=== PATIENT | male | born 1985 ===

== ENCOUNTER 2017-03-07 21:31 | Observation (INO) | payer MEDICAID, OTHER ==
[2017-03-07] MEDS ORDERED: Morphine 4 MG/ML VIAL IVP ONE (22:02)
[2017-03-07] MEDS ORDERED: Morphine 4 MG/ML VIAL ONE (22:13)
[2017-03-07 22:28] LABS: BASO % 0.4 % (0.0-2.0); EOS # 0.1 K/uL (0.0-0.7); EOS % 1.4 % (0.0-4.0); HEMATOCRIT 37.2 % (35.0-51.0); LYMPH # 1.3 K/uL (1.0-4.3); LYMPH % 17.9 % (20.0-40.0); MEAN CELL VOLUME 80.7 fl (80.0-94.0); MEAN CORPUSCULAR HEMOGLOBIN 25.8 pg (27.0-31.0); MONO # 0.8 K/uL (0.0-0.8); MONO % 10.5 % (0.0-10.0); NEUT # 5.1 K/uL (1.8-7.0); NEUT % 69.8 % (50.0-75.0); NRBC % 0.1 % (0.0-0.0); RED CELL DISTRIBUTION WIDTH 15.1 % (11.5-14.5); WHITE BLOOD COUNT 7.3 K/uL (4.8-10.8)
[2017-03-07 22:29] LABS: ALB/GLOB RATIO 1.2 (1.0-2.1); ALCOHOL SERUM < 10 mg/dl (0-10); ALKALINE PHOSPHATASE 101 U/L (38-126); ALT/SGPT 113 U/L (21-72); AST/SGOT 79 U/L (17-59); BILIRUBIN,TOTAL 0.4 mg/dl (0.2-1.3); BLOOD UREA NITROGEN 13 mg/dl (9-20); CALCIUM 8.2 mg/dL (8.4-10.2); CARBON DIOXIDE 25 mmol/L (22-30); CHLORIDE 102 mmol/L (98-107); GFR AFRICAN-AMERICAN > 60; GLUCOSE,RANDOM 105 mg/dL (75-110); POTASSIUM 3.7 MMOL/L (3.6-5.0); SODIUM 137 mmol/l (132-148); TOTAL PROTEIN 7.3 G/DL (6.3-8.2)
[2017-03-07 22:35] LABS: PARTIAL THROMBOPLASTIN TIME 29.1 Seconds (25.6-37.1)
--- NOTE | 2017-03-07 22:44 | ED PDOC ---
HPI: Chest Pain Time Seen by Provider: 03/07/17 21:48 Chief Complaint (Nursing): Chest Pain Chief Complaint (Provider): Chest pain History Per: Patient History/Exam Limitations: no limitations Onset/Duration Of Symptoms: Days (4) Additional Complaint(s): Patient is a 32 y/o male with no significant past medical history presenting to the emergency department for worsening chest pain that started four days ago with an associated mild cough that began today. Reports that the pain radiates to his back and is worse when inhaling or coughing. States that he feels that at times he cant catch a full breath. Also notes that he was seen at [facility] on 03/05/17, and had a workup there and was discharged. The pain has been considerably worse since then. Denies fever, nausea, vomiting, diarrhea, or other complaints. PCP: none provided. Past Medical History Reviewed: Historical Data, Nursing Documentation, Vital Signs Vital Signs: Last Vital Signs Temp 98.3 F 03/08/17 12:22 Pulse 79 03/08/17 12:22 Resp 18 03/08/17 12:22 BP 106/69 03/08/17 12:22 Pulse Ox 98 03/08/17 12:22 - Medical History PMH: No Chronic Diseases - Surgical History Surgical History: No Surg Hx - Family History Family History: States: Unknown Family Hx - Social History Current smoker - smoking cessation education provided: No Ex-Smoker (has not smoked in the last 12 months): No Alcohol: None Drugs: Denies - Immunization History Hx Tetanus Toxoid Vaccination: No Hx Influenza Vaccination: No Hx Pneumococcal Vaccination: No - Home Medications Home Medications: Ambulatory Orders Medication Instructions Recorded Aspirin [Ecotrin] 81 mg PO DAILY tabec 03/08/17 Cyanocobalamin/Folic Acid [Vitamin 1 each PO DAILY #30 tablet 03/08/17 W61-Gmges Acid Tablet] Ferrous Sulfate [Feosol] 325 mg PO DAILY #30 tab 03/08/17 - Allergies Allergies/Adverse Reactions: Allergies Allergy/AdvReac Type Severity Reaction Status Date / Time No Known Allergies Allergy Verified 07/19/15 13:27 Review of Systems ROS Statement: Except As Marked, All Systems Reviewed And Found Negative Constitutional: Negative for: Fever Cardiovascular: Positive for: Chest Pain Respiratory: Positive for: Cough (mild) Gastrointestinal: Negative for: Nausea, Vomiting, Diarrhea Musculoskeletal: Positive for: Back Pain Physical Exam - Reviewed Nursing Documentation Reviewed: Yes Vital Signs Reviewed: Yes - Physical Exam Appears: Positive for: Non-toxic, No Acute Distress, Uncomfortable Head Exam: Positive for: ATRAUMATIC, NORMAL INSPECTION, NORMOCEPHALIC Skin: Positive for: Normal Color, Warm, Dry Eye Exam: Positive for: Normal appearance Neck: Positive for: Normal Cardiovascular/Chest: Positive for: Tachycardia. Negative for: Murmur Respiratory: Positive for: Normal Breath Sounds. Negative for: Accessory Muscle Use, Respiratory Distress Gastrointestinal/Abdominal: Positive for: Normal Exam Extremity: Positive for: Normal ROM Neurologic/Psych: Positive for: Alert, Oriented (x3) - Laboratory Results Result Diagrams: 03/07/17 22:11 03/07/17 22:11 - ECG O2 Sat by Pulse Oximetry: 99 (RA) Pulse Ox Interpretation: Normal Medical Decision Making Medical Decision Making: Time: 21:48 Initial impression: Patient is a 32 y/o male with persistent chest pain. Initial plan: Angio Chest CT scan EKG Urine Drug Screening CBC Erythrocyte Sedimentation Rate Toradol 30 mg IV Morphine 4 mg IV Reevaluation Time: 2335 CT ANGIO CHEST IMPRESSION: 1. No pulmonary embolism. 2. Mild peripheral air trapping suggestive of mild small airways disease. 3. Fluid attenuation structure within the right-sided epicardial fat, favored to represent a pericardial cyst. Correlate with prior imaging if available. Otherwise, consider echocardiography for further evaluation. Time: 0106 labs reviewed and indicate an elevated sed rate; patient to be placed under chest pain observation. Case discussed with Dr. Florentino. Scribe Attestation: Documented by Dariana Hogan, acting as a scribe for Adebayo Leung MD. Provider Scribe Attestation: All medical record entries made by the Scribe were at my direction and personally dictated by me. I have reviewed the chart and agree that the record accurately reflects my personal performance of the history, physical exam, medical decision making, and the department course for this patient. I have also personally directed, reviewed, and agree with the discharge instructions and disposition. Disposition - Clinical Impression Clinical Impression: Chest pain - Patient ED Disposition Is Patient to be Admitted: Yes Discussed With DrFlip: Peng Florentino Counseled Patient/Family Regarding: Studies Performed, Diagnosis - Disposition Disposition Time: 01:07 Condition: FAIR - Pt Status Changed To: Hospital Disposition Of: Observation
[2017-03-07] MEDS ORDERED: Iodixanol 320 MG/ML 100 ML BOTTLE IV ONE (23:01)
[2017-03-07] MEDS ORDERED: Sodium Chloride 0.9% 50 ML IV ONE (23:01)
--- NOTE | 2017-03-08 01:34 | CP.PCM.HP ---
History of Present Illness - History of Present Illness History of Present Illness: PCP: None Chief Complaint Chest pain The patient was seen and examined in the ED HPI: 32 years old male with no past medical hx, comes with 4 days of pleuritic, Sharp, intermittent chest pain which increases with deep inspirtation and in any valsalva maneuver as straining to have a bowel movement. The pain radiates across the chest to the right neck and upper right back. He went to [facility] on the previous day for the same complaint. He was treated and discharged. No diaphoresis, fever, nausea, vomits, diarrhea, dysuria nor urinary frequently. PMH: No hereditary diseases PSH: Denies SH: No illegal drug use; Never smoked; Occasional alcohol; work as a straddle truck driver FH: Sister had some Problem with her heart cavity Allergies: NKDA Medication: none Present on Admission - Present on Admission Any Indicators Present on Admission: No History of DVT/PE: No History of Uncontrolled Diabetes: No Urinary Catheter: No Decubitus Ulcer Present: No Review of Systems - Constitutional Constitutional: absent: Anorexia, Fatigue, Fever, Headache - EENT Eyes: Requires Corrective Lenses. absent: Diplopia, Floaters, Photophobia, Sees Flashes Ears: absent: Decreased Hearing, Ear Discharge, Ear Pain, Tinnitus Nose/Mouth/Throat: absent: Epistaxis, Nasal Congestion, Sinus Pain, Sinus Pressure - Cardiovascular Cardiovascular: absent: Dyspnea, Edema Additional comments: Precordial chest pain radiating to the right neck - Respiratory Respiratory: absent: Cough, Dyspnea - Gastrointestinal Gastrointestinal: absent: Abdominal Pain, Constipation, Diarrhea, Nausea, Vomiting - Genitourinary Genitourinary: absent: Dysuria, Flank Pain, Hematuria, Urinary Frequency - Musculoskeletal Musculoskeletal: absent: Arthralgias, Joint Swelling, Muscle Weakness - Integumentary Integumentary: absent: Pruritus, Rash, Skin Ulcer, Sores, Striae, Swelling - Neurological Neurological: absent: Confusion, Dizziness, Focal Weakness, Loss of Vision, Weakness - Psychiatric Psychiatric: absent: Anxiety, Depression, Panic Attacks - Endocrine Endocrine: absent: Palpitations, Polydipsia, Polyphagia, Polyuria - Hematologic/Lymphatic Hematologic: absent: Easy Bleeding, Easy Bruising Past Patient History - Past Social History Smoking Status: Never Smoked Chewing Tobacco Use: No Cigar Use: No Alcohol: Occasional Drugs: Denies - CARDIAC Hx Cardiac Disorders: No - PULMONARY Hx Respiratory Disorders: No - NEUROLOGICAL Hx Neurological Disorder: No - HEENT Hx HEENT Problems: No - RENAL Hx Chronic Kidney Disease: No - ENDOCRINE/METABOLIC Hx Endocrine Disorders: No - HEMATOLOGICAL/ONCOLOGICAL Hx Blood Disorders: No - INTEGUMENTARY Hx Dermatological Problems: No - MUSCULOSKELETAL/RHEUMATOLOGICAL Hx Musculoskeletal Disorders: No - GASTROINTESTINAL Hx Gastrointestinal Disorders: No - GENITOURINARY/GYNECOLOGICAL Hx Genitourinary Disorders: No - PSYCHIATRIC Hx Psychophysiologic Disorder: No Hx Substance Use: No - SURGICAL HISTORY Hx Surgeries: No - ANESTHESIA Hx Anesthesia: No Meds Allergies/Adverse Reactions: Allergies Allergy/AdvReac Type Severity Reaction Status Date / Time No Known Allergies Allergy Verified 07/19/15 13:27 Physical Exam - Constitutional Appears: No Acute Distress - Head Exam Head Exam: ATRAUMATIC, NORMAL INSPECTION, NORMOCEPHALIC - Eye Exam Eye Exam: EOMI, Normal appearance Pupil Exam: NORMAL ACCOMODATION, PERRL - ENT Exam ENT Exam: Mucous Membranes Moist, Normal Exam, Normal External Ear Exam, Normal Oropharynx - Neck Exam Neck exam: Positive for: Full Rom, Normal Inspection. Negative for: Lymphadenopathy, Tenderness - Respiratory Exam Respiratory Exam: Clear to Auscultation Bilateral. absent: Rales, Rhonchi, Wheezes - Cardiovascular Exam Cardiovascular Exam: REGULAR RHYTHM, RRR, +S1, +S2. absent: JVD, Rubs - GI/Abdominal Exam GI & Abdominal Exam: Normal Bowel Sounds, Soft. absent: Mass, Organomegaly - Rectal Exam Rectal Exam: Deferred - Extremities Exam Extremities exam: Positive for: full ROM, normal inspection. Negative for: joint swelling, pedal edema - Back Exam Back exam: NORMAL INSPECTION. absent: CVA tenderness (L), CVA tenderness (R) - Neurological Exam Neurological exam: Alert, CN II-XII Intact, Oriented x3, Reflexes Normal - Psychiatric Exam Psychiatric exam: Normal Affect, Normal Mood - Skin Skin Exam: Dry, Intact, Normal Color, Warm Results - Vital Signs Recent Vital Signs: Last Vital Signs Temp 99.1 F 03/08/17 01:26 Pulse 93 H 03/08/17 01:26 Resp 16 03/08/17 01:26 BP 100/69 03/08/17 01:26 Pulse Ox 99 03/08/17 01:26 - Labs Result Diagrams: 03/07/17 22:11 03/07/17 22:11 Labs: Laboratory Results - last 24 hr 03/07/17 03/07/17 03/07/17 22:11 22:11 22:11 WBC 7.3 RBC 4.60 Hgb 11.9 L Hct 37.2 MCV 80.7 MCH 25.8 L MCHC 32.0 L RDW 15.1 H Plt Count 183 MPV 10.0 Neut % (Auto) 69.8 Lymph % (Auto) 17.9 L Winn % (Auto) 10.5 H Eos % (Auto) 1.4 Baso % (Auto) 0.4 Neut # 5.1 Lymph # 1.3 Winn # 0.8 Eos # 0.1 Baso # 0.0 ESR 47 H PT 11.3 INR 1.0 APTT 29.1 Sodium 137 Potassium 3.7 Chloride 102 Carbon Dioxide 25 Anion Gap 14 BUN 13 Creatinine 1.1 Est GFR ( Amer) > 60 Est GFR (Non-Af Amer) > 60 Random Glucose 105 Calcium 8.2 L Total Bilirubin 0.4 AST 79 H ALT 113 H Alkaline Phosphatase 101 Troponin I < 0.0120 Total Protein 7.3 Albumin 4.1 Globulin 3.2 Albumin/Globulin Ratio 1.2 Urine Opiates Screen Urine Methadone Screen Ur Barbiturates Screen Ur Phencyclidine Scrn Ur Amphetamines Screen U Benzodiazepines Scrn U Oth Cocaine Metabols U Cannabinoids Screen Alcohol, Quantitative < 10 Influenza Typ A,B (EIA) 03/07/17 03/07/17 22:11 23:02 WBC RBC Hgb Hct MCV MCH MCHC RDW Plt Count MPV Neut % (Auto) Lymph % (Auto) Winn % (Auto) Eos % (Auto) Baso % (Auto) Neut # Lymph # Winn # Eos # Baso # ESR PT INR APTT Sodium Potassium Chloride Carbon Dioxide Anion Gap BUN Creatinine Est GFR ( Amer) Est GFR (Non-Af Amer) Random Glucose Calcium Total Bilirubin AST ALT Alkaline Phosphatase Troponin I Total Protein Albumin Globulin Albumin/Globulin Ratio Urine Opiates Screen Positive H Urine Methadone Screen Negative Ur Barbiturates Screen Negative Ur Phencyclidine Scrn Negative Ur Amphetamines Screen Negative U Benzodiazepines Scrn Negative U Oth Cocaine Metabols Negative U Cannabinoids Screen Negative Alcohol, Quantitative Influenza Typ A,B (EIA) Negative for flu a/b - Imaging and Cardiology CT scan - chest Status: Image reviewed by me, Report reviewed by me Additional comment: EXAM: CT Angiography Chest With Intravenous Contrast FINDINGS: Pulmonary arteries: No filling defects within the central, segmental, or visualized subsegmental pulmonary arteries. Aorta: No acute findings. No thoracic aortic aneurysm. Lungs: The central airways are patent. Trace subpleural air-trapping within the lower lobes. Superimposed subpleural reticular opacities within the dependent aspect of the lower lobes may represent subsegmental atelectasis or scarring. No focal consolidation. Pleural space: No pneumothorax. No pleural effusion. Heart: Normal. No cardiomegaly. No significant pericardial effusion. No evidence of RV dysfunction. Bones/joints: The spine, sternum, ribs, and pectoral girdles are within normal limits for age. No acute osseous abnormality. No dislocation. Soft tissues: Fluid attenuation structure (6 Hounsfield units) within the right- sided epicardial fat measures approximately 4.4 cm x 2.4 cm x 6.4 cm (coronal series 601 image 30 and axial series 4 image 130). Lymph nodes: Normal. No enlarged lymph nodes. Upper abdomen: The visualized abdominal structures are normal. IMPRESSION: 1. No pulmonary embolism. 2. Mild peripheral air trapping suggestive of mild small airways disease. 3. Fluid attenuation structure within the right-sided epicardial fat, favored to represent a pericardial cyst. Correlate with prior imaging if available. Otherwise, consider echocardiography for further evaluation. Assessment & Plan - Assessment and Plan (Free Text) Assessment: #. Chest pain #. Anemia Plan: 32 years old male with no past medical hx, comes with 4 days of pleuritic, Sharp , intermittent chest pain which increases with deep inspirtation and in any valsalva maneuver as straining to have a bowel movement. The pain radiates across the chest to the right neck and upper right back. He went to [facility] on the previous day for the same complaint. He was treated and discharged. #. 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 Anemia - Iron panel - Vitamin B12 and Folate levels - Follow CBC #. DVT prophylaxis with Lovenox #. Code Status: Full - Date & Time Date: 03/08/17 Time: 01:34
[2017-03-08 03:48] VITALS: RESP 18
[2017-03-08 05:56] LABS: IRON 23 ug/dL (49-181)
[2017-03-08 06:01] LABS: CHOLESTEROL 142 mg/dL (0-199)
[2017-03-08] MEDS ORDERED: Influenza Vaccine 18yr & older 0.5 ML/45 MCG SYR IM ONE (06:30)
--- NOTE | 2017-03-08 08:24 | CARD ---
APPROVED REPORT EKG Measurement Heart [id number] <Conclusion> Normal sinus rhythm
--- NOTE | 2017-03-08 08:37 | CARD ---
APPROVED REPORT EKG Measurement Heart [id number] RI 156P35 [id number] <Conclusion> Normal sinus rhythm Rightward axis
[2017-03-08] MEDS ORDERED: Enoxaparin 40 mg Syringe SC SCH (09:00)
[2017-03-08 09:06] LABS: T4 5.84 ug/dl (5.5-11.0)
--- NOTE | 2017-03-08 09:13 | CT ---
PROCEDURE: CT Chest with contrast (Pulmonary Angiogram) HISTORY: chest pain r/o PE COMPARISON: None available. TECHNIQUE: Axial computed tomography images were obtained of the chest in the pulmonary arterial phase of enhancement. Coronal and sagittal reformatted images were created and reviewed. Intravenous contrast dose: 90 mL Visipaque 320 Radiation dose: Total exam DLP = 380 mGy-cm. This CT exam was performed using one or more of the following dose reduction techniques: Automated exposure control, adjustment of the mA and/or kV according to patient size, and/or use of iterative reconstruction technique. FINDINGS: PULMONARY ARTERIES: Unremarkable. No pulmonary embolism. AORTA: No acute findings. No thoracic aortic aneurysm. LUNGS: Inferior right upper lobe 8 millimeter sub fissural nodule (series 5, image 53). No focal consolidation. PLEURAL SPACES: Unremarkable. No effusion or pneumothorax. HEART: Enlarged. No significant pericardial effusion. Prominent, lobulated nonspecific fluid attenuation structure in the right epicardial fat pad spanning approximately 6.3 x 2.8 centimeter (series 3, image 65). LYMPH NODES: No lymphadenopathy. BONES, CHEST WALL: Unremarkable. No fracture or destructive lesion OTHER FINDINGS: Prominent, heterogeneous thyroid. IMPRESSION: Unremarkable CT pulmonary angiogram. No pulmonary embolus. Right upper lobe 8 millimeter sub fissural nodule. CT follow-up in 3-6 months is recommended to assess for stability/interval change. Nonspecific, lobulated fluid attenuation structure in the right epicardial fat pad measuring up to 6.3 centimeter. Findings may represent pericardial cyst versus necrotic lymph nodes. Contrast-enhanced MRI of the chest can be obtained for further evaluation as clinically warranted. Findings conveyed to VERONICA Noriega by Dr. Arrington at 9:10 am on 03/08/2017.
[2017-03-08 09:19] LABS: THYROID STIMULATING HORMONE 7.13 mIU/ML (0.46-4.68)
--- NOTE | 2017-03-08 10:15 | CP.PCM.CON ---
History of Present Illness - History of Present Illness History of Present Illness: 32 y/o male admitted with chest pain Pt first developed pleuritic type chest pain radiating to Right Neck on Monday 03/05; at which time he was seen in [facility] ER and discharged pain returned yesterday 03/07 claims it is sharp ; located at upper mid chest area worse with deep inspiration right neck pain seems to be more of a muscular type pain worse with neck movement / and palpation EKG: normal Troponin: neg Past Patient History - Past Medical History & Family History Past Medical History?: No - Past Social History Smoking Status: Never Smoked Chewing Tobacco Use: No Cigar Use: No Alcohol: Occasional Drugs: Denies - CARDIAC Hx Cardiac Disorders: No - PULMONARY Hx Respiratory Disorders: No - NEUROLOGICAL Hx Neurological Disorder: No - HEENT Hx HEENT Problems: No - RENAL Hx Chronic Kidney Disease: No - ENDOCRINE/METABOLIC Hx Endocrine Disorders: No - HEMATOLOGICAL/ONCOLOGICAL Hx Blood Disorders: No - INTEGUMENTARY Hx Dermatological Problems: No - MUSCULOSKELETAL/RHEUMATOLOGICAL Hx Musculoskeletal Disorders: No - GASTROINTESTINAL Hx Gastrointestinal Disorders: No - GENITOURINARY/GYNECOLOGICAL Hx Genitourinary Disorders: No - PSYCHIATRIC Hx Psychophysiologic Disorder: No Hx Substance Use: No - SURGICAL HISTORY Hx Surgeries: No - ANESTHESIA Hx Anesthesia: No Meds Allergies/Adverse Reactions: Allergies Allergy/AdvReac Type Severity Reaction Status Date / Time No Known Allergies Allergy Verified 07/19/15 13:27 - Medications Medications: Current Medications Aspirin (Ecotrin) 81 mg PO DAILY [facility] Last Admin: 03/08/17 08:24 Dose: 81 mg Cyanocobalamin (Vitamin B12 1000 Mcg/Ml Inj) 1,000 mcg IM DAILY [facility] Enoxaparin Sodium (Lovenox) 40 mg SC DAILY [facility] PRN Reason: Protocol Last Admin: 03/08/17 08:24 Dose: 40 mg Ferrous Sulfate (Feosol) 325 mg PO BID [facility] Ketorolac Tromethamine (Toradol) 30 mg IVP Q6 PRN PRN Reason: Pain, severe (8-10) Last Admin: 03/08/17 04:12 Dose: 30 mg Ketorolac Tromethamine (Toradol) 15 mg IVP Q6 PRN PRN Reason: Pain, moderate (4-7) Physical Exam - Neck Exam Neck exam: Positive for: Tenderness - Respiratory Exam Respiratory Exam: NORMAL BREATHING PATTERN - Cardiovascular Exam Cardiovascular Exam: REGULAR RHYTHM Additional comments: no friction rub Results - Vital Signs Recent Vital Signs: Last Vital Signs Temp 98.2 F 03/08/17 08:01 Pulse 72 03/08/17 08:01 Resp 18 03/08/17 08:01 BP 109/67 03/08/17 08:01 Pulse Ox 96 03/08/17 08:01 - Labs Result Diagrams: 03/07/17 22:11 03/07/17 22:11 Labs: Laboratory Results - last 24 hr 03/07/17 03/07/17 03/07/17 22:11 22:11 22:11 WBC 7.3 RBC 4.60 Hgb 11.9 L Hct 37.2 MCV 80.7 MCH 25.8 L MCHC 32.0 L RDW 15.1 H Plt Count 183 MPV 10.0 Neut % (Auto) 69.8 Lymph % (Auto) 17.9 L Beadle % (Auto) 10.5 H Eos % (Auto) 1.4 Baso % (Auto) 0.4 Neut # 5.1 Lymph # 1.3 Beadle # 0.8 Eos # 0.1 Baso # 0.0 ESR 47 H PT 11.3 INR 1.0 APTT 29.1 Sodium 137 Potassium 3.7 Chloride 102 Carbon Dioxide 25 Anion Gap 14 BUN 13 Creatinine 1.1 Est GFR ( Amer) > 60 Est GFR (Non-Af Amer) > 60 Random Glucose 105 Calcium 8.2 L Iron TIBC % Saturation Total Bilirubin 0.4 AST 79 H ALT 113 H Alkaline Phosphatase 101 Troponin I < 0.0120 Total Protein 7.3 Albumin 4.1 Globulin 3.2 Albumin/Globulin Ratio 1.2 Triglycerides Cholesterol LDL Cholesterol Direct HDL Cholesterol Vitamin B12 Thyroxine (T4) TSH 3rd Generation Urine Opiates Screen Urine Methadone Screen Ur Barbiturates Screen Ur Phencyclidine Scrn Ur Amphetamines Screen U Benzodiazepines Scrn U Oth Cocaine Metabols U Cannabinoids Screen Alcohol, Quantitative < 10 Influenza Typ A,B (EIA) 03/07/17 03/07/17 03/08/17 22:11 23:02 05:00 WBC RBC Hgb Hct MCV MCH MCHC RDW Plt Count MPV Neut % (Auto) Lymph % (Auto) Beadle % (Auto) Eos % (Auto) Baso % (Auto) Neut # Lymph # Beadle # Eos # Baso # ESR PT INR APTT Sodium Potassium Chloride Carbon Dioxide Anion Gap BUN Creatinine Est GFR ( Amer) Est GFR (Non-Af Amer) Random Glucose Calcium Iron TIBC % Saturation Total Bilirubin AST ALT Alkaline Phosphatase Troponin I < 0.0120 Total Protein Albumin Globulin Albumin/Globulin Ratio Triglycerides 61 Cholesterol 142 LDL Cholesterol Direct 73 HDL Cholesterol 47 Vitamin B12 211 L Thyroxine (T4) TSH 3rd Generation Urine Opiates Screen Positive H Urine Methadone Screen Negative Ur Barbiturates Screen Negative Ur Phencyclidine Scrn Negative Ur Amphetamines Screen Negative U Benzodiazepines Scrn Negative U Oth Cocaine Metabols Negative U Cannabinoids Screen Negative Alcohol, Quantitative Influenza Typ A,B (EIA) Negative for flu a/b 03/08/17 03/08/17 05:00 08:40 WBC RBC Hgb Hct MCV MCH MCHC RDW Plt Count MPV Neut % (Auto) Lymph % (Auto) Beadle % (Auto) Eos % (Auto) Baso % (Auto) Neut # Lymph # Beadle # Eos # Baso # ESR PT INR APTT Sodium Potassium Chloride Carbon Dioxide Anion Gap BUN Creatinine Est GFR ( Amer) Est GFR (Non-Af Amer) Random Glucose Calcium Iron 23 L TIBC 239 L % Saturation 10 L Total Bilirubin AST ALT Alkaline Phosphatase Troponin I Total Protein Albumin Globulin Albumin/Globulin Ratio Triglycerides Cholesterol LDL Cholesterol Direct HDL Cholesterol Vitamin B12 Thyroxine (T4) 5.84 TSH 3rd Generation 7.13 H Urine Opiates Screen Urine Methadone Screen Ur Barbiturates Screen Ur Phencyclidine Scrn Ur Amphetamines Screen U Benzodiazepines Scrn U Oth Cocaine Metabols U Cannabinoids Screen Alcohol, Quantitative Influenza Typ A,B (EIA) Assessment & Plan (1) Pleuritic chest pain Assessment and Plan: The chest pain appears to be pleuritic in origin. Echo pending if normal patient may be discharged Status: Acute
--- NOTE | 2017-03-08 10:46 | CARD ---
APPROVED REPORT EXAM: Two-dimensional and M-mode echocardiogram with Doppler and color Doppler. Other Information Quality : GoodRhythm : NSR INDICATION Chest Pain 2D DIMENSIONS IVSd0.85 (0.7-1.1cm)LVDd4.32 (3.9-5.9cm) LVOT Diameter2.23 (1.8-2.4cm)PWd0.85 (0.7-1.1cm) IVSs1.21 (0.8-1.2cm)LVDs2.63 (2.5-4.0cm) FS (%) 39.1 %PWs1.20 (0.8-1.2cm) M-Mode DIMENSIONS Left Atrium (MM)3.78 (2.5-4.0cm)IVSd1.18 (0.7-1.1cm) Aortic Root2.99 (2.2-3.7cm)LVDd4.56 (4.0-5.6cm) Aortic Cusp Exc.2.08 (1.5-2.0cm)PWd1.29 (0.7-1.1cm) IVSs1.65 cmFS (%) 43 % LVDs2.60 (2.0-3.8cm)PWs1.47 cm Mitral Valve MV E Cfrtcafj76.4cm/sMV DECEL [id number] A Efcdhqas24.5cm/s MV MVC89dtD/A ratio1.4MVA (PHT)4.07cm2 TDI Lateral E' Peak V15.40cm/sMedial E' Peak V11.57cm/sE/Lateral E'4.4 E/Medial E'5.9 Pulmonary Valve PV Peak Xlzmqssk474.4cm/s LEFT VENTRICLE The left ventricle is normal size. There is normal left ventricular wall thickness. Left ventricle systolic function is normal. The Ejection Fraction is 65-70%. There is normal LV segmental wall motion. The left ventricular diastolic function is normal. RIGHT VENTRICLE The right ventricle is normal size. There is normal right ventricular wall thickness. The right ventricular systolic function is normal. ATRIA The left atrium size is normal. The right atrium size is normal. AORTIC VALVE The aortic valve is normal in structure. No aortic regurgitation is present. There is no aortic valvular stenosis. MITRAL VALVE The mitral valve is normal in structure. There is no evidence of mitral valve prolapse. There is no mitral valve stenosis. There is no mitral valve regurgitation noted. TRICUSPID VALVE The tricuspid valve is normal in structure. There is no tricuspid valve regurgitation noted. PULMONIC VALVE The pulmonary valve is normal in structure. There is no pulmonic valvular regurgitation. GREAT VESSELS The aortic root is normal in size. The IVC is normal in size and collapses >50% with inspiration. PERICARDIAL EFFUSION The pericardium appears normal. <Conclusion> The left ventricle is normal size. There is normal left ventricular wall thickness. There is normal LV segmental wall motion. Left ventricle systolic function is normal. The Ejection Fraction is 65-70%. The left ventricular diastolic function is normal.
--- NOTE | 2017-03-08 11:31 | CP.PCM.DIS ---
<Panfilo Jett - Last Filed: 03/08/17 11:56> Provider - Provider Date of Admission: 03/08/17 01:00 Attending physician: Peng Florentino Time Spent in preparation of Discharge (in minutes): 30 Diagnosis - Discharge Diagnosis (1) Atypical chest pain Status: Acute (2) B12 deficiency anemia Status: Acute (3) Iron deficiency Status: Acute (4) Lung nodule Status: Acute (5) Abnormal liver function test Status: Acute (6) Abnormal TSH Status: Acute Hospital Course - Lab Results Lab Results: Most Recent Lab Values WBC 7.3 K/uL (4.8-10.8) 03/07/17 22:11 RBC 4.60 Mil/uL (4.40-5.90) 03/07/17 22:11 Hgb 11.9 g/dL (12.0-18.0) L 03/07/17 22:11 Hct 37.2 % (35.0-51.0) 03/07/17 22:11 MCV 80.7 fl (80.0-94.0) 03/07/17 22:11 MCH 25.8 pg (27.0-31.0) L 03/07/17 22:11 MCHC 32.0 g/dL (33.0-37.0) L 03/07/17 22:11 RDW 15.1 % (11.5-14.5) H 03/07/17 22:11 Plt Count 183 K/uL (130-400) 03/07/17 22:11 MPV 10.0 fl (7.2-11.7) 03/07/17 22:11 Neut % (Auto) 69.8 % (50.0-75.0) 03/07/17 22:11 Lymph % (Auto) 17.9 % (20.0-40.0) L 03/07/17 22:11 Piute % (Auto) 10.5 % (0.0-10.0) H 03/07/17 22:11 Eos % (Auto) 1.4 % (0.0-4.0) 03/07/17 22:11 Baso % (Auto) 0.4 % (0.0-2.0) 03/07/17 22:11 Neut # 5.1 K/uL (1.8-7.0) 03/07/17 22:11 Lymph # 1.3 K/uL (1.0-4.3) 03/07/17 22:11 Piute # 0.8 K/uL (0.0-0.8) 03/07/17 22:11 Eos # 0.1 K/uL (0.0-0.7) 03/07/17 22:11 Baso # 0.0 K/uL (0.0-0.2) 03/07/17 22:11 ESR 47 mm/hr (0-15) H 03/07/17 22:11 PT 11.3 Seconds (9.8-13.1) 03/07/17 22:11 INR 1.0 (0.9-1.2) 03/07/17 22:11 APTT 29.1 Seconds (25.6-37.1) 03/07/17 22:11 Sodium 137 mmol/l (132-148) 03/07/17 22:11 Potassium 3.7 MMOL/L (3.6-5.0) 03/07/17 22:11 Chloride 102 mmol/L (98-107) 03/07/17 22:11 Carbon Dioxide 25 mmol/L (22-30) 03/07/17 22:11 Anion Gap 14 (10-20) 03/07/17 22:11 BUN 13 mg/dl (9-20) 03/07/17 22:11 Creatinine 1.1 mg/dl (0.8-1.5) 03/07/17 22:11 Est GFR ( Amer) > 60 03/07/17 22:11 Est GFR (Non-Af Amer) > 60 03/07/17 22:11 Random Glucose 105 mg/dL (75-110) 03/07/17 22:11 Calcium 8.2 mg/dL (8.4-10.2) L 03/07/17 22:11 Iron 23 ug/dL (49-181) L 03/08/17 05:00 TIBC 239 ug/dL (250-450) L 03/08/17 05:00 % Saturation 10 % (20-55) L 03/08/17 05:00 Total Bilirubin 0.4 mg/dl (0.2-1.3) 03/07/17 22:11 AST 79 U/L (17-59) H 03/07/17 22:11 ALT 113 U/L (21-72) H 03/07/17 22:11 Alkaline Phosphatase 101 U/L (38-126) 03/07/17 22:11 Troponin I 0.0130 ng/mL (0.00-0.120) 03/08/17 10:11 Total Protein 7.3 G/DL (6.3-8.2) 03/07/17 22:11 Albumin 4.1 g/dL (3.5-5.0) 03/07/17 22:11 Globulin 3.2 gm/dL (2.2-3.9) 03/07/17 22:11 Albumin/Globulin Ratio 1.2 (1.0-2.1) 03/07/17 22:11 Triglycerides 61 mg/DL (0-149) 03/08/17 05:00 Cholesterol 142 mg/dL (0-199) 03/08/17 05:00 LDL Cholesterol Direct 73 mg/dL (0-129) 03/08/17 05:00 HDL Cholesterol 47 MG/DL (30-70) 03/08/17 05:00 Vitamin B12 211 pg/mL (239-931) L 03/08/17 05:00 Thyroxine (T4) 5.84 ug/dl (5.5-11.0) 03/08/17 08:40 TSH 3rd Generation 7.13 mIU/ML (0.46-4.68) H 03/08/17 08:40 Urine Opiates Screen Positive (NEGATIVE) H 03/07/17 23:02 Urine Methadone Screen Negative (NEGATIVE) 03/07/17 23:02 Ur Barbiturates Screen Negative (NEGATIVE) 03/07/17 23:02 Ur Phencyclidine Scrn Negative (NEGATIVE) 03/07/17 23:02 Ur Amphetamines Screen Negative (NEGATIVE) 03/07/17 23:02 U Benzodiazepines Scrn Negative (NEGATIVE) 03/07/17 23:02 U Oth Cocaine Metabols Negative (NEGATIVE) 03/07/17 23:02 U Cannabinoids Screen Negative (NEGATIVE) 03/07/17 23:02 Alcohol, Quantitative < 10 mg/dl (0-10) 03/07/17 22:11 Influenza Typ A,B (EIA) Negative for flu a/b (NEGATIVE) 03/07/17 22:11 - Hospital Course Hospital Course: 32 years old male with no past medical hx, was admitted with pleuritic, Sharp, intermittent chest pain which increases with deep inspiration. The pain radiates across the chest to the right neck and upper right back. He went to [facility] on the previous day for the same complaint. He was treated and discharged. He was followed by Cardiology Dr Huggins during admission and chest CT and Echo were done. Normal echo, on CT was found an incidental lung nodule of 8mm on R middle lobe, CT f/u in 4-6 months recommended. Troponin x3 negative, Abnormal LFT and elevated TSH with normal T4, recommended f/u and monitor as outpatient. Patient asymptomatic at discharge time, discharged home safely with clearance and follow up instructions by his PMD. Discharge Exam - Head Exam Head Exam: NORMAL INSPECTION - Eye Exam Eye Exam: EOMI, PERRL - Respiratory Exam Respiratory Exam: Clear to PA & Lateral, NORMAL BREATHING PATTERN. absent: Rhonchi, Wheezes - Cardiovascular Exam Cardiovascular Exam: REGULAR RHYTHM, +S1, +S2 - GI/Abdominal Exam GI & Abdominal Exam: Normal Bowel Sounds, Soft. absent: Distended, Tenderness - Extremities Exam Extremities exam: normal inspection - Neurological Exam Neurological exam: Alert, Oriented x3 - Skin Skin Exam: Dry, Intact, Warm Discharge Plan - Discharge Medications Prescriptions: Cyanocobalamin/Folic Acid [Vitamin C89-Bmabb Acid Tablet] 1 each PO DAILY #30 tablet Ferrous Sulfate [Feosol] 325 mg PO DAILY #30 tab - Follow Up Plan Condition: GOOD Disposition: HOME/ ROUTINE Patient education suggested?: Yes Instructions: Chest Pain (DC), Anemia (DC) Additional Instructions: [facility] 1 wk will need further work up as outpt for the chest pain need ff up CT of chest to ff up on the lung nodule in 6 months Also need to ff up on TSH, T4 as outpt Monitor liver function test as outpt Referrals: [facility] [place] [Outside] <Sadie Chacon - Last Filed: 03/08/17 12:02> Provider - Provider Date of Admission: 03/08/17 01:00 Attending physician: Peng Florentino [facility] Course - Lab Results Lab Results: Most Recent Lab Values WBC 7.3 K/uL (4.8-10.8) 03/07/17 22:11 RBC 4.60 Mil/uL (4.40-5.90) 03/07/17 22:11 Hgb 11.9 g/dL (12.0-18.0) L 03/07/17 22:11 Hct 37.2 % (35.0-51.0) 03/07/17 22:11 MCV 80.7 fl (80.0-94.0) 03/07/17 22:11 MCH 25.8 pg (27.0-31.0) L 03/07/17 22:11 MCHC 32.0 g/dL (33.0-37.0) L 03/07/17 22:11 RDW 15.1 % (11.5-14.5) H 03/07/17 22:11 Plt Count 183 K/uL (130-400) 03/07/17 22:11 MPV 10.0 fl (7.2-11.7) 03/07/17 22:11 Neut % (Auto) 69.8 % (50.0-75.0) 03/07/17 22:11 Lymph % (Auto) 17.9 % (20.0-40.0) L 03/07/17 22:11 Piute % (Auto) 10.5 % (0.0-10.0) H 03/07/17 22:11 Eos % (Auto) 1.4 % (0.0-4.0) 03/07/17 22:11 Baso % (Auto) 0.4 % (0.0-2.0) 03/07/17 22:11 Neut # 5.1 K/uL (1.8-7.0) 03/07/17 22:11 Lymph # 1.3 K/uL (1.0-4.3) 03/07/17 22:11 Pi[place] # 0.8 K/uL (0.0-0.8) 03/07/17 22:11 Eos # 0.1 K/uL (0.0-0.7) 03/07/17 22:11 Baso # 0.0 K/uL (0.0-0.2) 03/07/17 22:11 ESR 47 mm/hr (0-15) H 03/07/17 22:11 PT 11.3 Seconds (9.8-13.1) 03/07/17 22:11 INR 1.0 (0.9-1.2) 03/07/17 22:11 APTT 29.1 Seconds (25.6-37.1) 03/07/17 22:11 Sodium 137 mmol/l (132-148) 03/07/17 22:11 Potassium 3.7 MMOL/L (3.6-5.0) 03/07/17 22:11 Chloride 102 mmol/L (98-107) 03/07/17 22:11 Carbon Dioxide 25 mmol/L (22-30) 03/07/17 22:11 Anion Gap 14 (10-20) 03/07/17 22:11 BUN 13 mg/dl (9-20) 03/07/17 22:11 Creatinine 1.1 mg/dl (0.8-1.5) 03/07/17 22:11 Est GFR ( Amer) > 60 03/07/17 22:11 Est GFR (Non-Af Amer) > 60 03/07/17 22:11 Random Glucose 105 mg/dL (75-110) 03/07/17 22:11 Calcium 8.2 mg/dL (8.4-10.2) L 03/07/17 22:11 Iron 23 ug/dL (49-181) L 03/08/17 05:00 TIBC 239 ug/dL (250-450) L 03/08/17 05:00 % Saturation 10 % (20-55) L 03/08/17 05:00 Total Bilirubin 0.4 mg/dl (0.2-1.3) 03/08/17 11:24 Direct Bilirubin 0.3 mg/ml (0.0-0.4) 03/08/17 11:24 AST 73 U/L (17-59) H 03/08/17 11:24 ALT 112 U/L (21-72) H 03/08/17 11:24 Alkaline Phosphatase 104 U/L (38-126) 03/08/17 11:24 Troponin I 0.0130 ng/mL (0.00-0.120) 03/08/17 10:11 Total Protein 7.4 G/DL (6.3-8.2) 03/08/17 11:24 Albumin 4.0 g/dL (3.5-5.0) 03/08/17 11:24 Globulin 3.4 gm/dL (2.2-3.9) 03/08/17 11: Albumin/Globulin Ratio 1.2 (1.0-2.1) 03/08/17 11:24 Triglycerides 61 mg/DL (0-149) 03/08/17 05:00 Cholesterol 142 mg/dL (0-199) 03/08/17 05:00 LDL Cholesterol Direct 73 mg/dL (0-129) 03/08/17 05:00 HDL Cholesterol 47 MG/DL (30-70) 03/08/17 05:00 Vitamin B12 211 pg/mL (239-931) L 03/08/17 05:00 Thyroxine (T4) 5.84 ug/dl (5.5-11.0) 03/08/17 08:40 TSH 3rd Generation 7.13 mIU/ML (0.46-4.68) H 03/08/17 08:40 Urine Opiates Screen Positive (NEGATIVE) H 03/07/17 23:02 Urine Methadone Screen Negative (NEGATIVE) 03/07/17 23:02 Ur Barbiturates Screen Negative (NEGATIVE) 03/07/17 23:02 Ur Phencyclidine Scrn Negative (NEGATIVE) 03/07/17 23:02 Ur Amphetamines Screen Negative (NEGATIVE) 03/07/17 23:02 U Benzodiazepines Scrn Negative (NEGATIVE) 03/07/17 23:02 U Oth Cocaine Metabols Negative (NEGATIVE) 03/07/17 23:02 U Cannabinoids Screen Negative (NEGATIVE) 03/07/17 23:02 Alcohol, Quantitative < 10 mg/dl (0-10) 03/07/17 22:11 Influenza Typ A,B (EIA) Negative for flu a/b (NEGATIVE) 03/07/17 22:11 Attending/Attestation - Attestation I have personally seen and examined this patient.: Yes I have fully participated in the care of the patient.: Yes I have reviewed all pertinent clinical information, including history, physical exam and plan: Yes
[2017-03-08 11:38] LABS: ALB/GLOB RATIO 1.2 (1.0-2.1); BILIRUBIN,TOTAL 0.4 mg/dl (0.2-1.3); TOTAL PROTEIN 7.4 G/DL (6.3-8.2)
[2017-03-08 12:23] VITALS: BP 106/69; PULSE 79; TEMP 98.3
[2017-03-08 19:47] VITALS: O2SAT 99
[2017-03-11 13:13] LABS: FOLATE 12.3 ng/mL
== END 2017-03-08 16:30 | disposition home or self-care (01) ==
LOC: H.ER 21:31 → H.ERHOLD 03-08 01:00 → H.TEL 03-08 02:32
PROVIDERS: ADMIT Internal Medicine; ATTEND Internal Medicine
DX: R07.89 Other chest pain (principal); D51.9 Vitamin B12 deficiency anemia, unspecified; E61.1 Iron deficiency; R91.1 Solitary pulmonary nodule; R94.6 Abnormal results of thyroid function studies; Z23 Encounter for immunization; M54.2 Cervicalgia
CPT/HCPCS: 36415; 71275; 80053; 80061; 80076; 80320; 80324; 80345; 80346; 80349; 80353; 80358; 80361; 82607; 82746; 83540; 83550; 83992; 84436; 84443; 84484; 85025; 85610; 85651; 85730; 87804; 90471; 93005; 93306; 96374; 99285; G0378; J1650; J1885; J2270; J3420; Q2035; Q9967